=== PATIENT | female | born 1995 | race African-American/Black ===

== ENCOUNTER 2020-06-18 13:10 | Emergency (ER) | payer OTHER ==
[~2020-06-18] VITALS: Ht 165.1 cm; Wt 76.8 kg
[2020-06-18 13:19] VITALS: TEMP 98
[2020-06-18 13:36] LABS: COLLECTION METHOD CLEAN CATCH
[2020-06-18 13:44] LABS: PH 7 (5-8); SQUAMOUS EPITHELIAL 0-2 /hpf; URINE APPEARANCE Clear; URINE BACTERIA None Seen /hpf; URINE BILIRUBIN Negative (NEGATIVE); URINE BLOOD Negative (NEGATIVE); URINE COLOR Straw; URINE GLUCOSE Negative (NEGATIVE); URINE KETONE Negative (NEGATIVE); URINE LEUKOCYTE ESTERASE Negative (NEGATIVE); URINE NITRATE Negative (NEGATIVE); URINE PROTEIN(semi-quant) Negative (NEGATIVE); URINE RBC 0-2 /hpf; URINE UROBILINOGEN Negative (NEGATIVE)
[2020-06-18 15:30] VITALS: BP 120/68; PULSE 70
== END 2020-06-18 15:31 | disposition home or self-care (01) ==
LOC: COL.ER 13:10
PROVIDERS: Nurse Practitioner Primary Care
DX: R10.2 Pelvic and perineal pain (principal); N89.8 Other specified noninflammatory disorders of vagina; Z32.02 Encounter for pregnancy test, result negative

== ENCOUNTER 2020-07-19 12:07 | Emergency (ER) | payer OTHER ==
[~2020-07-19] VITALS: Wt 79.5 kg
[2020-07-19 12:20] VITALS: BP 126/81; TEMP 98.6
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
[2020-07-19 14:31] VITALS: PULSE 65
== END 2020-07-19 14:31 | disposition home or self-care (01) ==
LOC: COL.ER 12:07
DX: T74.21XA Adult sexual abuse, confirmed, initial encounter (principal); X58.XXXA Exposure to other specified factors, initial encounter; Y07.9 Unspecified perpetrator of maltreatment and neglect